=== PATIENT | female | born 1985 | race Two or more races ===

== ENCOUNTER 2024-05-02 08:10 | Day surgery (SDC) | payer MEDICAID, SELFPAY ==
--- NOTE | 2024-04-29 14:34 | ESHP_ITS ---
RE: ALEX ROME : 1985 DATE OF ADMISSION: 05/02/2024 HISTORY OF PRESENT ILLNESS: This is a 39-year-old 4, para 4 with abnormal uterine bleeding due to endometrial polyp. ALLERGIES: FLONASE. MEDICATIONS: Baclofen 10 mg 1 p.o. at bedtime for chronic breast pain. PAST MEDICAL HISTORY: Migraine headaches, chronic breast pain, gallstones, fibrocystic breast disease, BMI 40, polycystic ovarian syndrome. 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 FAMILY HISTORY: Diabetes, hypertension, heart disease. OBSTETRIC HISTORY: Four previous full-term, normal vaginal deliveries. PAST SURGICAL HISTORY: Cholecystectomy and laparoscopic bilateral salpingectomy. PHYSICAL EXAMINATION: VITAL SIGNS: Blood pressure 92/51, heart rate 71, respirations 18, temperature is 98.2, weight 198 pounds. HEENT: Oropharynx and sclerae are clear. LUNGS: Clear to auscultation bilaterally. HEART: Regular rate and rhythm. ABDOMEN: Nontender. Old trocar scars noted. EXTREMITIES: Nontender. SKIN: No gross rashes or lesions. NEUROLOGIC: No focal deficit. ASSESSMENT: Abnormal uterine bleeding, endometrial polyp. PLAN: Hysteroscopy, MyoSure removal of endometrial polyp, fractional dilatation and curettage, and NovaSure endometrial ablation. Informed consent was obtained. The patient was made aware of the risks, complications, alternatives, benefits of the proposed procedure and she agrees. She is aware of the risk of injury to bowel, bladder, uterus, adjacent organs, pulmonary embolism, deep vein thrombosis, pelvic infection, reoperation to repair injury to internal organs, anesthesia complications, the possibility that laparotomy needs to be performed to repair organs or control bleeding, and possibility of procedures not able to be completed due to severe adhesions or technical difficulties. She verbalized understanding and agrees to proceed with the procedure. DT: ::28 TT: 12:32:00 Ref: [id number] - TID: [id number]
[2024-05-01 11:56] VITALS: BMI 14.0
[2024-05-01 12:44] LABS: Basophils % (Auto) 0 % (0-2.5); Eosinophils # (Auto) 0.1 Thou/mm3 (0.0-0.5); Eosinophils % (Auto) 1 % (0-10); Hematocrit 37.2 % (36.0-46.0); Hemoglobin 12.5 g/dL (12.0-16.0); Immature Granulocytes % (Auto) 0 % (0-0); Immature Granulocytes Auto 0.01 Thou/mm3 (0.00-0.00); Lymphocytes # (Auto) 1.9 Thou/mm3 (1.0-4.8); Lymphocytes % (Auto) 41 % (10-50); Mean Corpuscular HGB Conc 33.6 g/dl (31.0-37.0); Mean Corpuscular Hemoglobin 29.8 pg (25.0-35.0); Mean Corpuscular Volume 89 fL (80-100); Monocytes # (Auto) 0.4 Thou/mm3 (0.0-0.8); Monocytes % (Auto) 8 % (0-12); Neutrophils # (Auto) 2.2 Thou/mm3 (1.8-7.7); Neutrophils % (Auto) 49 % (37-80); Nucleated Red Blood Cell % 0 /100 WBC (0); Platelet Count 228 Thou/mm3 (140-440); RDW Standard Deviation 45.8 fL (36.4-46.3); White Blood Count 4.5 Thou/mm3 (3.6-11.0)
[2024-05-01 12:54] LABS: Partial Thromboplastin Time 27.6 Seconds (22.0-36.0); Prothrombin Time 11.1 Seconds (9.0-12.2)
[2024-05-01 12:58] LABS: Alanine Aminotransferase 14 U/L (10-49); Albumin, Serum 4.2 gm/dL (3.5-5.0); Albumin/Globulin Ratio 1.5 (1.2-2.2); Alkaline Phosphatase 89 U/L (46-116); Anion Gap 7 (7-16); Aspartate Amino Transferase 20 U/L (0-34); BUN/Creatinine Ratio 18 Ratio (12-20); Beta HCG,Quantitative < 1 mIU/mL (<5.0); Bilirubin,Total 0.5 mg/dL (0.3-1.2); Blood Urea Nitrogen 11 mg/dL (9-23); Calcium 9.2 mg/dL (8.3-10.6); Calcium (Corrected) 9.2 mg/dL (8.5-10.1); Carbon Dioxide 24.9 mMol/L (20.0-31.0); Chloride 107 mMol/L (98-107); Creatinine (Component) 0.6 mg/dL (0.6-1.3); Estimated Creatinine Clearance 87.3 mL/min (>60); Globulin 2.8 gm/dL (2.3-3.5); Glucose 79 mg/dL (74-106); Osmolality,Calculated 275 (275-295); Potassium 3.9 mMol/L (3.4-5.1); Sodium 139 mMol/L (136-145); eGFR > 60 See Note
[2024-05-02] VITALS (9 sets, daily range): BP systolic 104–116; BP diastolic 62–71; PULSE 55–67; RESP 12–16; TEMP 36.1–36.9; O2SAT 98–100; BMI 28.0
--- NOTE | 2024-05-02 09:20 | CHAP ---
Gave patient encouragement and prayer.
--- NOTE | 2024-05-02 12:12 | SUR.PHASEI ---
1141 patient is sleepy and arousable, breathing unlabored, s/p D&C, endometrial ablation, peripad dry with no bleeding, report received from Sterling ABRAHAM and Dr. Howard.
--- NOTE | 2024-05-02 12:27 | SUR.PHASEII ---
1227 report given to Nelida Escobar RN
--- NOTE | 2024-05-02 12:55 | SUR.PHASEII ---
pt awake, alert, able to follow commands, breathing unlabored, peripad intact-clean and dry, discharge instructions given with spouse present, all questions answered, pt able to dress self and ambulate to wheelchair with steady gait, pt discharged via wheelchair with all belongings and copies of discharge paperwork.
--- NOTE | 2024-05-02 21:36 | ESOP_ITS ---
RE: ALEX ROME : 1985 DATE OF OPERATION: 05/02/2024 PREOPERATIVE DIAGNOSIS: Abnormal uterine bleeding, endometrial polyp. POSTOPERATIVE DIAGNOSIS: Abnormal uterine bleeding, endometrial polyp. PROCEDURE PERFORMED: A hysteroscopy, MyoSure removal of endometrial polyp, fractional dilatation and curettage, and NovaSure endometrial ablation. SURGEON: Rajinder Washburn DO CHINESE TEACHER: None. ANESTHESIA: General. ANESTHESIOLOGIST: Dr. Howard. ESTIMATED BLOOD LOSS: 5 mL. COMPLICATIONS: None. COUNTS: Correct. PATHOLOGY: 1. Endometrial polyp. 2. Endocervical curettings. 3. Endometrial curettings. FINDINGS: Endometrial cavity showed endometrial polyp measuring 5 x 5 mm. Otherwise, normal uterine cavity and endocervical cavity. DESCRIPTION OF PROCEDURE: After proper informed consent was obtained, the patient was made aware of the risks, complications, alternatives, benefits of the proposed procedure. She was taken to the operating room where she underwent induction of general anesthesia. She was placed in dorsal lithotomy position. She was prepped and draped in usual sterile fashion. A timeout was performed. A speculum was placed in vagina. Single-tooth tenaculum was used to grasp the anterior lip of the cervix. Cervix was dilated to accommodate the 5.5 mm Omni hysteroscope and using the Omni hysteroscope, the endocervix was visualized as well as the uterine cavity and the above findings were noted. Using the MyoSure Reach, the polypectomy was performed and the endocervix was then curetted with a Kevorkian curette. The uterine cavity was curetted with a normal curette. The NovaSure catheter was used to perform the endometrial ablation. She tolerated the procedure well. Counts were correct. All instruments were removed from the vagina. She was reversed from general anesthesia in supine position and transferred to recovery room in stable condition. DT: 11:39:33 TT: 13:53:00 Ref: [id number] - TID: [id number]
== END 2024-05-02 12:55 | disposition home or self-care (01) ==
PROVIDERS: PCP Physician Assistant Medical; Referring Provider Specialist; Visit Provider Specialist
PROC: 0U5B8ZZ Destruction of Endometrium, Via Natural or Artificial Opening Endoscopic (ICD-10-PCS; CPT 58563; principal; 2024-05-02 10:15)
DX: N84.0 Polyp of corpus uteri (principal); E28.2 Polycystic ovarian syndrome; Z83.3 Family history of diabetes mellitus; Z90.49 Acquired absence of other specified parts of digestive tract; Z90.79 Acquired absence of other genital organ(s); Z82.49 Family history of ischemic heart disease and other diseases of the circulatory system
CPT/HCPCS: 58558; 36415; 80053; 84702; 85025; 85610; 85730; 86850; 86900; 86901; A4217; A4649; J0690; J1100; J2250; J2405; J2704; J3010

== ENCOUNTER → 2024-08-03 | Outpatient (CLI) | payer MEDICAID, SELFPAY ==
--- NOTE | 2024-08-03 08:00 | XR_ITS ---
Examination: MRI lumbar spine without contrast Date and time of exam: August 03, 2024 0737 hrs. Indications: Lower back pain radiating down the left leg numbness in the left foot foot drop noticed beginning 3 months ago Technique: Multiple MRI axial and sagittal sections lumbar spine. Sagittal T2-weighted images, TR 3500, TE 118 T1 weighted transverse sections, TR 688 T8.5, T2-weighted sagittal sections T1 weighted sagittal sections TR 621, TE 30 T2 axial sections, TR 4, 190, TE 84. Findings: Adequate alignment lumbar vertebral bodies on the lateral view No lumbar fracture No significant lumbar disc narrowing No spondylolisthesis L5-S1 no disc protrusion L4-L5 2 mm central lumbar disc bulge L3-L4 4 mm central lumbar disc bulge including annular disc tear posterior central disc margin axial image 7 L2-L3 no disc protrusion L1-2 no disc protrusion Impression: L4-L5 2 mm central lumbar disc bulge L3-L4 4 mm central lumbar disc bulge including annular disc tear posterior central disc margin No right or left-sided ganglionic compression
== END | disposition home or self-care (01) ==
LOC: SMRI 07:31
PROVIDERS: PCP Physician Assistant Medical; Referring Provider Physician Assistant Medical; Visit Provider Physician Assistant Medical
DX: S34.103A Unspecified injury to L3 level of lumbar spinal cord, initial encounter (principal); X58.XXXA Exposure to other specified factors, initial encounter; M51.369 Other intervertebral disc degeneration, lumbar region without mention of lumbar back pain or lower extremity pain
CPT/HCPCS: 72148

== ENCOUNTER → 2024-11-22 | Outpatient (CLI) | payer MEDICAID, SELFPAY ==
--- NOTE | 2024-11-22 12:00 | XR_ITS ---
Examination: MRI bilateral breasts pre and postcontrast Date and time: November 22, 2024 1236 hours INDICATIONS: Diagnosis unspecified lump in the right breast, right breast pain 2 years, mammogram April 05, 2024 heterogeneously dense breast architecture TECHNIQUE AND FINDINGS: Bilateral breast MRI images pre and post intravenous administration 16 cc gadolinium Heterogeneous breast signal by laterally Mild breast background enhancement on the postcontrast images No dominant breast lesion depicted No chest wall mass Bilateral axillary lymph nodes, the largest in the right axilla measuring 17 mm No foci of rapid wash-in and rapid washout on the postcontrast images IMPRESSION: BI-RADS Category 2: Benign findings
== END | disposition home or self-care (01) ==
LOC: SMRI 11:38
PROVIDERS: PCP Physician Assistant Medical; Referring Provider Physician Assistant Medical; Visit Provider Physician Assistant Medical
DX: N64.4 Mastodynia (principal)
CPT/HCPCS: 77049; A9579; C8908

== ENCOUNTER 2024-12-26 10:50 | Day surgery (SDC) | payer MEDICAID, SELFPAY ==
[2024-12-26] VITALS (9 sets, daily range): BP systolic 100–119; BP diastolic 61–77; PULSE 66–82; RESP 12–20; TEMP 36.6–37.2; O2SAT 99–100; BMI 25.1
[2024-12-26] MEDS: RINGERS LACTATED 1000 ML 1,000 ML 125 ML IV (12:45)
[2024-12-26] MEDS: fentaNYL CIT INJ 50 mCg/ML AMP 2ML (ASD USE ONLY) IVP (12:45)
[2024-12-26] MEDS: MIDAZOLAM INJ 1 MG/ML VIAL 2 ML (ASD USE ONLY) 2 MG IVP (12:45)
== END 2024-12-26 13:28 | disposition home or self-care (01) ==
PROVIDERS: PCP Physician Assistant Medical; Referring Provider Internal Medicine Gastroenterology; Visit Provider Internal Medicine Gastroenterology
PROC: (CPT 43239; principal; 2024-12-26 12:00)
DX: K29.70 Gastritis, unspecified, without bleeding (principal); Z98.84 Bariatric surgery status; K63.89 Other specified diseases of intestine; K62.89 Other specified diseases of anus and rectum; K64.9 Unspecified hemorrhoids
CPT/HCPCS: 43239; 81025; J1200; J2250; J3010; J7120

== ENCOUNTER 2024-12-28 09:20 | Day surgery (SDC) | payer MEDICAID, SELFPAY ==
[2024-12-28] VITALS (13 sets, daily range): BP systolic 98–119; BP diastolic 60–73; PULSE 65–85; RESP 13–21; TEMP 36.6–36.8; O2SAT 96–100; BMI 25.5
[2024-12-28] MEDS: SODIUM CHLORIDE 0.9% 500 ML 500 ML 20 ML IV (10:54)
[2024-12-28] MEDS: fentaNYL CIT INJ 50 mCg/ML AMP 2ML (ASD USE ONLY) IVP (10:56)
[2024-12-28] MEDS: MIDAZOLAM INJ 1 MG/ML VIAL 2 ML (ASD USE ONLY) 2 MG IVP (11:00)
== END 2024-12-28 12:05 | disposition home or self-care (01) ==
PROVIDERS: PCP Physician Assistant Medical; Referring Provider Internal Medicine Gastroenterology; Visit Provider Internal Medicine Gastroenterology
PROC: 0DBE8ZX Excision of Large Intestine, Via Natural or Artificial Opening Endoscopic, Diagnostic (ICD-10-PCS; CPT 45380; principal; 2024-12-28 11:15)
DX: K64.9 Unspecified hemorrhoids (principal); I10 Essential (primary) hypertension; R10.84 Generalized abdominal pain; E66.01 Morbid (severe) obesity due to excess calories; Z68.25 Body mass index [BMI] 25.0-25.9, adult; Z87.19 Personal history of other diseases of the digestive system
CPT/HCPCS: 45380; J1200; J2250; J3010; J7999